=== PATIENT | male | born 1935 | race Caucasian/White ===

== ENCOUNTER 2023-10-04 15:27 | Emergency (ER) | payer OTHER ==
[2023-10-04 16:13] LABS: Absolute Eosinophils 0.2 K/uL (0-0.5); Absolute Lymphocytes (CBC) 1.9 K/uL (0.7-4.9); Absolute Monocytes 0.9 K/uL (0.1-1.3); Absolute Neutrophil 5.6 K/uL (1.8-8.0); Basophils % 0.4 % (0-1.3); Eosinophils % 2.1 % (0-4.4); Hematocrit 42.6 % (39.6-49.0); Hemoglobin 14.9 g/dL (13.6-17.9); Lymphocytes % 21.9 % (15.3-44.8); MCH 35.3 pg (27.0-35.0); MCHC 34.9 g/dL (32.0-36.0); MCV 101.1 fL (80-100); MPV 9.3 fL (7.6-11.3); Monocytes % 10.2 % (3.3-12.3); Neutrophils % 65.4 % (41.7-73.7); Nucleated Red Blood Cells % 0.2 % (0-0); Platelets 195 thou/uL (152-406); RBC Red Blood Cell Count 4.22 M/uL (4.33-5.43); Red Cell Distribution Width 13.1 % (12.1-15.2)
[2023-10-04 16:27] LABS: Anion Gap 7.8 mEq/L (5.0-15.0); Potassium 3.8 mEq/L (3.5-5.1); Troponin High Sensitivity 8.8 pg/mL (<58.9)
--- NOTE | 2023-10-04 16:51 | RAD REPORT ---
EXAM DESCRIPTION: RAD - Chest Single View - 10/04/2023 4:40 pm CLINICAL HISTORY: CHEST PAIN Chest pain. COMPARISON: No comparisons FINDINGS: Portable technique limits examination quality. The lungs are grossly clear. The heart is normal in size. No displaced fractures.Sternotomy wires. IMPRESSION: No acute intrathoracic process suspected.
--- NOTE | 2023-10-04 18:59 | EDPHYS ---
Physician Documentation [facility] Name: Konstantin Pritchard Age: 88 yrs Sex: Male : 1935 Arrival Date: 10/04/2023 Time: 15:27 Bed 11 Private MD: ED Physician José Miguel Barclay HPI: 10/03 15:43 This 88 yrs old Male presents to ER via Ambulatory with complaints of Chest ec2 Pain. 15:43 Patient arrives today for evaluation of chest pain. Patient reports several weeks of ec2 chest pain, intermittent, worsened with pressing on the area. Denies any difficulty breathing. Reports history of diabetes, history of CABG approximately 20 years ago.. Historical: - Allergies: 15:39 No Known Allergies; rs5 - PMHx: 15:39 Diabetes mellitus; Hypertensive disorder; rs5 - PSHx: 15:39 Hernia repair; rs5 - Immunization history:: Adult Immunizations up to date. - Infectious Disease History:: Denies. - Social history:: Smoking status: Patient/guardian denies using tobacco, but has a distant history of tobacco abuse. ROS: 15:43 Constitutional: as per hpi ec2 Exam: 15:43 Constitutional: GEN: NAD Head: atraumatic Eyes: EOMI Ears: External ears are ec2 normal. CV: regular rate LUNGS: no respiratory distress ABD: non-distended SKIN: no evidence of rashes MSK: no evidence of trauma NEURO: moves all extremities equally Vital Signs: 15:38 BP 170 / 89; Pulse 78; Resp 18; Pulse Ox 97% on R/A; rs5 18:34 BP 133 / 70; Pulse 66; Resp 18; Pulse Ox 95% on R/A; Pain 0/10; iw 19:16 BP 114 / 77; Pulse 89; Resp 16; Temp 97.9; Pulse Ox 100% on R/A; Pain 0/10; pf1 18:34 Pain Scale: Adult iw 19:16 Pain Scale: Adult pf1 MDM: 15:43 Data reviewed: vital signs. ED course: Patient arrives today for evaluation of chest ec2 pain. Examination remarkable for well-appearing nontoxic dividual with reproducible chest wall TTP. Will obtain lab work, chest x-ray to further suspicion complaint. EKG obtained, independently reviewed and interpreted by me, shows normal sinus rhythm, rate 78, no acute ST segment elevations, nonconcerning intervals. Evaluating for ACS, electrolyte disturbances, pneumonia.. 15:50 Patient medically screened. ec2 16:35 ED course: Metabolic profile reassuring, CBC reassuring, troponin within normal ranges, ec2 BNP within normal ranges. . 16:55 ED course: Chest x-ray shows no acute intrathoracic process. Will obtain repeat EKG and ec2 troponin at 2-hour jackson. 10/03 15:29 Order name: Basic Metabolic Panel; Complete Time: 16:35 ec2 10/03 15:29 Order name: CBC with Diff; Complete Time: 16:35 ec2 10/03 15:29 Order name: NT PRO-BNP; Complete Time: 16:35 ec2 10/03 15:29 Order name: Troponin HS; Complete Time: 16:35 ec2 10/03 18:06 Order name: Troponin High Sensitivity; Complete Time: 18:57 sb4 10/03 15:29 Order name: XRAY Chest (1 view); Complete Time: 16:55 ec2 10/03 15:29 Order name: Cardiac monitoring; Complete Time: 16:03 ec2 10/03 15:29 Order name: EKG - Nurse/Tech; Complete Time: 16:03 ec2 10/03 15:29 Order name: IV Saline Lock; Complete Time: 16:03 ec2 10/03 15:29 Order name: Labs collected and sent; Complete Time: 16:03 ec2 10/03 15:29 Order name: O2 Per Protocol; Complete Time: 16:04 ec2 10/03 15:29 Order name: O2 Sat Monitoring; Complete Time: 16:03 ec2 10/03 16:56 Order name: Misc. Order: repeat EKG and troponin at 1800; Complete Time: 18:30 ec2 EC:32 Rate is 72 beats/min. Rhythm is regular, Normal Sinus Rhythm. WA interval is normal at sb4 178 msec. QRS interval is normal at 84 msec. QT interval is normal at 394 msec. No Q waves. T waves are Normal. No ST changes noted. Clinical impression: Normal ECG and No evidence of ischemia. Interpreted by me. Reviewed by me. Administered Medications: No medications were administered Disposition Summary: 10/04/23 18:58 Discharge Ordered Notes: Location: Home sb4 Condition: Stable sb4 Diagnosis - Chest pain, unspecified sb4 Followup: ec2 - With: Private Physician - When: - Reason: Re-evaluation by your physician Discharge Instructions: - Discharge Summary Sheet ec2 - Nonspecific Chest Pain, Adult ec2 Forms: - Medication Reconciliation Form sb4 - Thank You Letter sb4 - Patient Portal Instructions sb4 - Leadership Thank You Letter sb4 Addendum: 10/06/2023 09:21 I was immediately available for consultation during this patient's visit. I did not e c2 personally see the patient or discuss the patient with the KAVYA. . Signatures: Dispatcher [employer] Radha De La Cruz PA-C PA-C sb4 Walter Escudero RN RN rs5 José Miguel Barclay MD MD ec2 Corrections: (The following items were deleted from the chart) 10/03 15:29 15:29 Chest Single View+[email or web address] ordered. EDFL EDMS 15:41 15:39 PMHx: "Open heart surgery"; rs5 rs5 15:41 15:39 PMHx: "open heart surgery"; rs5 rs5 15:41 15:39 PMHx: "Open heart surgery"; rs5 rs5
--- NOTE | 2023-10-04 18:59 | ER ---
Nurse's Notes [facility] Name: Konstantin Pritchard Age: 88 yrs Sex: Male : 1935 Arrival Date: 10/04/2023 Time: 15:27 Bed 11 Private MD: Diagnosis: Chest pain, unspecified Presentation: 10/03 15:38 Chief complaint: Patient states: Intermittent chest pain x2 weeks. Coronavirus screen: rs5 At this time, the client does not indicate any symptoms associated with coronavirus-19. Ebola Screen: No symptoms or risks identified at this time. Initial Sepsis Screen: Does the patient meet any 2 criteria? No. Patient's initial sepsis screen is negative. Does the patient have a suspected source of infection? No. Patient's initial sepsis screen is negative. Risk Assessment: Do you want to hurt yourself or someone else? Patient reports no desire to harm self or others. Onset of symptoms was October 04, 2023. 15:38 Method Of Arrival: Ambulatory rs5 15:38 Acuity: TAY 3 rs5 Historical: - Allergies: 15:39 No Known Allergies; rs5 - PMHx: 15:39 Diabetes mellitus; Hypertensive disorder; rs5 - PSHx: 15:39 Hernia repair; rs5 - Immunization history:: Adult Immunizations up to date. - Infectious Disease History:: Denies. - Social history:: Smoking status: Patient/guardian denies using tobacco, but has a distant history of tobacco abuse. Screenin:40 [facility] ED Fall Risk Assessment (Adult) History of falling in the last 3 months, rs5 including since admission No falls in past 3 months (0 pts) Confusion or Disorientation No (0 pts) Intoxicated or Sedated No (0 pts) Impaired Gait No (0 pts) Mobility Assist Device Used No (0 pt) Altered Elimination No (0 pt) Score/Fall Risk Level 0 - 2 = Low Risk Oriented to surroundings, Maintained a safe environment. 15:40 Abuse screen: Denies threats or abuse. Nutritional screening: No deficits noted. rs5 Tuberculosis screening: No symptoms or risk factors identified. Assessment: 15:40 General: Appears in no apparent distress. uncomfortable, Behavior is calm, cooperative. rs5 Pain: Complains of pain in chest Pain does not radiate. Pain currently is 2 out of 10 on a pain scale. Quality of pain is described as aching, Pain began began two weeks ago Is intermittent. Neuro: Level of Consciousness is awake, alert, obeys commands, Oriented to person, place, time, situation. Cardiovascular: Patient's skin is warm and dry. Rhythm is regular. Respiratory: Airway is patent Respiratory effort is even, unlabored, Respiratory pattern is regular, symmetrical. GI: Abdomen is round non-distended, Abd is soft and non tender X 4 quads. : No signs and/or symptoms were reported regarding the genitourinary system. EENT: No signs and/or symptoms were reported regarding the EENT system. Derm: Skin is intact, Skin is pink, warm \\T\\ dry. Musculoskeletal: Range of motion: intact in all extremities. 16:31 Reassessment: No changes from previously documented assessment. rs5 18:30 Reassessment: Patient appears in no apparent distress at this time. Patient and/or iw family updated on plan of care and expected duration. Pain level reassessed. Patient is alert, oriented x 3, equal unlabored respirations, skin warm/dry/pink. Patient denies pain at this time. Patient states feeling better. Patient states symptoms have improved. Vital Signs: 15:38 BP 170 / 89; Pulse 78; Resp 18; Pulse Ox 97% on R/A; rs5 18:34 BP 133 / 70; Pulse 66; Resp 18; Pulse Ox 95% on R/A; Pain 0/10; iw 19:16 BP 114 / 77; Pulse 89; Resp 16; Temp 97.9; Pulse Ox 100% on R/A; Pain 0/10; pf1 18:34 Pain Scale: Adult iw 19:16 Pain Scale: Adult pf1 ED Course: 15:28 Patient arrived in ED. im 15:28 José Miguel Barclay MD is Attending Physician. ec2 15:38 Walter Escudero, ELDER is Primary Nurse. rs5 15:39 Triage completed. rs5 15:40 Arm band placed on right wrist. rs5 15:40 Patient has correct armband on for positive identification. Placed in gown. Bed in low rs5 position. Call light in reach. Side rails up X2. 15:40 Client placed on continuous cardiac and pulse oximetry monitoring. NIBP monitoring rs5 applied. 15:40 No provider procedures requiring assistance completed. Patient maintains SpO2 rs5 saturation greater than 95% on room air. 16:42 XRAY Chest (1 view) In Process Unspecified. EDMS 17:58 Radha Pack PA-C is PHCP. sb4 18:30 Troponin High Sensitivity Sent. iw 19:16 IV discontinued, intact, bleeding controlled, No redness/swelling at site. Pressure pf1 dressing applied. Administered Medications: No medications were administered Medication: 16:32 VIS not applicable for this client. rs5 Outcome: 18:58 Discharge ordered by MD. sb4 19:17 Discharged to home ambulatory, pf1 19:17 Condition: improved 19:17 Discharge instructions given to patient, family, Instructed on discharge instructions, follow up and referral plans. Demonstrated understanding of instructions, follow-up care, 19:17 Patient left the ED. pf1 Signatures: Dispatcher [employer] Lola Martini RN RN iw Radha Pack PA-C PA-C sb4 Bessie Mary RN RN pf1 Walter Escudero RN RN rs5 Quin Whitney Edwin, MD MD ec2 Corrections: (The following items were deleted from the chart) 15:41 15:39 PMHx: "Open heart surgery"; rs5 rs5 15:41 15:39 PMHx: "open heart surgery"; rs5 rs5 15:41 15:39 PMHx: "Open heart surgery"; rs5 rs5
[2023-10-04 21:44] VITALS: BP 114/77; TEMP 97.9; O2SAT 100
--- NOTE | 2023-10-06 15:43 | EKG ---
Test Date: 2023-10-04 Test Time: 18:27:43 Purchasing Engineer: ALISSON MEASUREMENT RESULTS: Intervals: Rate: 72 OH: 178 QRSD: 84 QT: 394 QTc: 431 [place]: P: 47 OH: 178 QRS: 10 T: 1 INTERPRETIVE STATEMENTS: Normal sinus rhythm Minimal voltage criteria for LVH, may be normal variant Borderline ECG No previous ECG available for comparison Electronically Signed On 10-06-23 15:40:06 CDT by Wilberto Aguilar
== END 2023-10-04 19:17 | disposition home or self-care (01) ==
LOC: ER 15:27
DX: R07.9 Chest pain, unspecified (principal); I10 Essential (primary) hypertension; Z95.1 Presence of aortocoronary bypass graft
CPT/HCPCS: 36415; 71045; 80048; 83880; 84484; 85025; 93005; 99284